=== PATIENT | male | born 1990 | race Two or more races ===

== ENCOUNTER 2017-06-21 05:01 | Emergency (ER) | payer MEDICAID ==
[~2017-06-21] VITALS: Ht 175.3 cm; Wt 64.4 kg
[2017-06-21 05:20] VITALS: BP 144/78
== END 2017-06-21 06:44 | disposition left against medical advice (07) ==
LOC: ER 05:07
DX: F11.20 Opioid dependence, uncomplicated (principal); L02.414 Cutaneous abscess of left upper limb; F12.10 Cannabis abuse, uncomplicated

== ENCOUNTER 2017-06-24 01:47 | Emergency (ER) | payer MEDICAID ==
[~2017-06-24] VITALS: Ht 175.3 cm; Wt 68.9 kg
[2017-06-24 02:06] VITALS: BP 119/74
[2017-06-24 03:27] LABS: Basophils # (auto) 0 uL; Basophils % (auto) 0.3 % (0.0-2.0); Eosinophils # (auto) 0.1 uL; Eosinophils % (auto) 0.8 % (0.0-7.0); Hematocrit 39.7 % (41.0-53.0); Hemoglobin 13.5 g/dL (13.5-17.5); Lymphocytes # (auto) 2.1 uL; Lymphocytes % (auto) 22.9 % (10.0-50.0); Mean Corpuscular Hemoglobin 28.8 pg (28.0-32.0); Mean Corpuscular Hgb Conc. 33.9 g/dL (32.0-36.0); Monocytes # (auto) 0.9 uL; Monocytes % (auto) 9.4 % (0.0-12.0); Neutrophils # (auto) 6.2 uL; Neutrophils % (auto) 66.6 % (37.0-80.0); Nucleated Red Blood Cells % 0.1 %; Platelet Count (auto) 308 10^3/uL (140-450); Red Blood Cells 4.67 10^6/uL (4.5-5.90); White Blood Cell 9.3 10^3/uL (4.4-10.8)
[2017-06-24 03:45] LABS: Albumin 3.5 g/dL (3.4-5.0); BUN/Creatinine Ratio 20.4; Calcium 8.8 mg/dL (8.5-10.1); Potassium 3.5 mmol/L (3.5-5.1)
[2017-06-24 03:48] LABS: Bilirubin, Total 0.5 mg/dL (0.2-1.0); Total Protein 7.3 g/dL (6.4-8.2)
== END 2017-06-24 05:41 | disposition left against medical advice (07) ==
LOC: ER 01:47
DX: T63.301A Toxic effect of unspecified spider venom, accidental (unintentional), initial encounter (principal); Z53.21 Procedure and treatment not carried out due to patient leaving prior to being seen by health care provider; Y92.89 Other specified places as the place of occurrence of the external cause
CPT/HCPCS: 36415; 80053; 85025

== ENCOUNTER 2017-06-25 12:40 | Emergency (ER) | payer MEDICAID ==
[~2017-06-25] VITALS: Ht 175.3 cm; Wt 64.4 kg
[2017-06-25 13:08] VITALS: BP 128/81
[2017-06-25] MEDS ORDERED: LIDOCAINE 1% (LOCAL ANESTH.) PF 5ml SDV IJ ONE (14:00)
[2017-06-25] MEDS ORDERED: cefTRIAXone SOD 1,000 MG VL IM ONE (14:15)
== END 2017-06-25 14:43 | disposition home or self-care (01) ==
LOC: ER 12:40
DX: L02.414 Cutaneous abscess of left upper limb (principal); Z88.2 Allergy status to sulfonamides
CPT/HCPCS: 10060; 96372; 99283; J0696

== ENCOUNTER 2017-11-20 04:25 | Observation (INO) | payer MEDICAID ==
[~2017-11-20] VITALS: Ht 177.8 cm; Wt 68.0 kg
[2017-11-20 06:09] LABS: Urine Bacteria FEW /hpf (None Seen); Urine Blood Negative /uL (Negative); Urine Mucus FEW (None Seen); Urine Specific Gravity 1.029 (1.001-1.035); Urine WBC 2 /hpf (0 - 3)
[2017-11-20 06:19] LABS: Basophils # (auto) 0 uL; Basophils % (auto) 0.2 % (0.0-2.0); Eosinophils # (auto) 0 uL; Eosinophils % (auto) 0.1 % (0.0-7.0); Hematocrit 43.4 % (41.0-53.0); Hemoglobin 15.3 g/dL (13.5-17.5); Lymphocytes # (auto) 1.9 uL; Lymphocytes % (auto) 15.8 % (10.0-50.0); Mean Corpuscular Hgb Conc. 35.3 g/dL (32.0-36.0); Monocytes % (auto) 8.2 % (0.0-12.0); Neutrophils # (auto) 9.2 uL; Neutrophils % (auto) 75.7 % (37.0-80.0); Platelet Count (auto) 297 10^3/uL (140-450); Red Blood Cells 5.11 10^6/uL (4.5-5.90); Red Cell Distribution Width 13.5 % (11.8-14.3); White Blood Cell 12.2 10^3/uL (4.4-10.8)
[2017-11-20 06:35] LABS: Alanine Aminotransferase 26 U/L (16-61); Albumin 4.5 g/dL (3.4-5.0); Anion Gap 12 (5-15); Aspartate Aminotransferase 25 U/L (15-37); BUN/Creatinine Ratio 16.9; Blood Alcohol < 3.0 mg/dL (0-5); Blood Urea Nitrogen 35 mg/dL (7-18); Calcium 8.6 mg/dL (8.5-10.1); Carbon Dioxide 23 mmol/L (21-32); Chloride 96 mmol/L (98-107); GFR African American 49 mL/min; GFR Non-African American 41 mL/min; Glucose 130 mg/dL (74-106); Potassium 3.6 mmol/L (3.5-5.1); Sodium 131 mmol/L (136-145)
[2017-11-20 06:37] LABS: Alcohol, Urine < 3.0 mg/dL (0-5); Amphetamine Screen, Urine POSITIVE (NEGATIVE); Barbiturate Scree,Urine NEGATIVE (NEGATIVE); Benzodiazephine Screen, Urine NEGATIVE (NEGATIVE); Cannabinoid Screen, Urine NEGATIVE (NEGATIVE); Cocaine Screen, Urine NEGATIVE (NEGATIVE); Opiate Scree,Urine POSITIVE (NEGATIVE); Phencyclidine Screen, Urine NEGATIVE (NEGATIVE)
[2017-11-20 06:42] LABS: Alkaline Phosphatase 76 U/L (45-117); Bilirubin, Total 1.2 mg/dL (0.2-1.0); Total Protein 8.5 g/dL (6.4-8.2)
[2017-11-20 15:51] VITALS: BP 114/61
== END 2017-11-20 16:00 | disposition home or self-care (01) | DRG 773 ==
LOC: ER 04:25 → OVERFLOW 04:26 → ER 15:59
PROVIDERS: ADMIT Emergency Medicine; ATTEND Emergency Medicine
DX: F11.20 Opioid dependence, uncomplicated (principal); N18.3 Chronic kidney disease, stage 3 (moderate); F15.10 Other stimulant abuse, uncomplicated
CPT/HCPCS: 36415; 80053; 80307; 80320; 81001; 85025; 99285; G0378; J7030

== ENCOUNTER 2018-04-01 04:29 | Emergency (ER) | payer MEDICAID ==
[~2018-04-01] VITALS: Ht 177.8 cm; Wt 77.1 kg
[2018-04-01] MEDS ORDERED: NALOXONE HCL 0.4 MG/ML VIAL IV ONE (05:15)
[2018-04-01 05:44] VITALS: BP 158/96
[2018-04-01 06:42] LABS: Salicylate < 1.7 mg/dL (2.8-20.0)
[2018-04-01 06:44] LABS: Alanine Aminotransferase 41 U/L (16-61); Albumin 4.4 g/dL (3.4-5.0); Anion Gap 10 (5-15); Aspartate Aminotransferase 44 U/L (15-37); BUN/Creatinine Ratio 21.6; Blood Alcohol < 3.0 mg/dL (0-5); Blood Urea Nitrogen 27 mg/dL (7-18); Calcium 8.1 mg/dL (8.5-10.1); Carbon Dioxide 24 mmol/L (21-32); Chloride 100 mmol/L (98-107); GFR African American > 60 mL/min; GFR Non-African American > 60 mL/min; Glucose 119 mg/dL (74-106); Magnesium 2.2 mg/dL (1.6-2.6); Potassium 3.2 mmol/L (3.5-5.1); Sodium 134 mmol/L (136-145)
[2018-04-01 06:45] LABS: Acetaminophen < 2.0 ug/mL (10-30); Basophils # (auto) 0 uL; Basophils % (auto) 0.3 % (0.0-2.0); Eosinophils # (auto) 0 uL; Hematocrit 41.1 % (41.0-53.0); Hemoglobin 14.4 g/dL (13.5-17.5); Lymphocytes % (auto) 7.4 % (10.0-50.0); Mean Corpuscular Hemoglobin 29.7 pg (28.0-32.0); Mean Corpuscular Volume 84.8 fL (80.0-100.0); Monocytes # (auto) 0.9 uL; Monocytes % (auto) 6.9 % (0.0-12.0); Neutrophils # (auto) 11.7 uL; Neutrophils % (auto) 85.4 % (37.0-80.0); Platelet Count (auto) 232 10^3/uL (140-450); Red Blood Cells 4.85 10^6/uL (4.5-5.90); Red Cell Distribution Width 13.3 % (11.8-14.3); White Blood Cell 13.7 10^3/uL (4.4-10.8)
[2018-04-01 06:47] LABS: Alkaline Phosphatase 93 U/L (45-117); Bilirubin, Total 1.4 mg/dL (0.2-1.0); Total Protein 8.1 g/dL (6.4-8.2)
== END 2018-04-01 06:06 | disposition left against medical advice (07) ==
LOC: EDBD 04:29 → ER 04:29
DX: T40.1X1A Poisoning by heroin, accidental (unintentional), initial encounter (principal); R07.81 Pleurodynia; F12.10 Cannabis abuse, uncomplicated; F15.10 Other stimulant abuse, uncomplicated; F11.10 Opioid abuse, uncomplicated; Z88.2 Allergy status to sulfonamides; Y92.9 Unspecified place or not applicable; Z59.0 Homelessness
CPT/HCPCS: 36415; 80053; 80320; 80329; 83735; 85025

== ENCOUNTER 2018-04-02 00:11 | Emergency (ER) | payer MEDICAID ==
[~2018-04-02] VITALS: Ht 177.8 cm; Wt 74.8 kg
[2018-04-02 03:15] VITALS: BP 117/75
== END 2018-04-02 03:16 | disposition home or self-care (01) ==
LOC: ER 00:11
DX: S22.42XA Multiple fractures of ribs, left side, initial encounter for closed fracture (principal); S20.212A Contusion of left front wall of thorax, initial encounter; F11.10 Opioid abuse, uncomplicated; F12.10 Cannabis abuse, uncomplicated; F15.10 Other stimulant abuse, uncomplicated; Z90.49 Acquired absence of other specified parts of digestive tract; Z59.0 Homelessness; Z88.2 Allergy status to sulfonamides; X58.XXXA Exposure to other specified factors, initial encounter; Y93.89 Activity, other specified; Y99.8 Other external cause status; Y92.89 Other specified places as the place of occurrence of the external cause
CPT/HCPCS: 71101

== ENCOUNTER 2019-01-03 13:26 | Inpatient (IN) | payer MEDICAID ==
[~2019-01-03] VITALS: Ht 172.7 cm; Wt 72.0 kg
[2019-01-03] MEDS ORDERED: SODIUM CHLORIDE 0.9% 1,000 ML IV ONE (13:42)
[2019-01-03] MEDS ORDERED: VANCOMYCIN 1GM/250ML 250 ML IV ONE (13:45)
[2019-01-03] MEDS ORDERED: metroNIDAZOLE 500MG/100ML 100 ML IV ONE (13:45)
[2019-01-03] MEDS ORDERED: NALOXONE HCL 0.4 MG/ML VIAL ONE (14:01)
[2019-01-03] MEDS ORDERED: ONDANSETRON HCL 4 MG/2 ML VIAL ONE (14:06)
[2019-01-03 14:12] LABS: Basophils # (auto) 0 uL; Basophils % (auto) 0.1 % (0.0-2.0); Eosinophils # (auto) 0 uL; Eosinophils % (auto) 0.6 % (0.0-7.0); Hemoglobin 13.8 g/dL (13.5-17.5); Lymphocytes # (auto) 0.3 uL; Lymphocytes % (auto) 10.4 % (10.0-50.0); Mean Corpuscular Hemoglobin 29.1 pg (28.0-32.0); Mean Corpuscular Hgb Conc. 33.7 g/dL (32.0-36.0); Mean Corpuscular Volume 86.4 fL (80.0-100.0); Monocytes # (auto) 0.1 uL; Monocytes % (auto) 2.1 % (0.0-12.0); Neutrophils # (auto) 2.4 uL; Neutrophils % (auto) 86.8 % (37.0-80.0); Nucleated Red Blood Cells % 0.1 %; Platelet Count (auto) 230 10^3/uL (140-450); Red Blood Cells 4.74 10^6/uL (4.5-5.90); Red Cell Distribution Width 13.3 % (11.8-14.3); White Blood Cell 2.7 10^3/uL (4.4-10.8)
[2019-01-03] MEDS ORDERED: ONDANSETRON HCL 4 MG/2 ML VIAL IV ONE (14:15)
[2019-01-03] MEDS ORDERED: NALOXONE HCL 0.4 MG/ML VIAL IV ONE (14:15)
[2019-01-03 14:22] LABS: INR 1.16 (0.9-1.15); Partial Thromboplastin Time 23.7 sec (23.64-32.05)
[2019-01-03 14:25] LABS: Albumin 3.6 g/dL (3.4-5.0); Anion Gap 9 (5-15); Blood Urea Nitrogen 20 mg/dL (7-18); Carbon Dioxide 26 mmol/L (21-32); Chloride 102 mmol/L (98-107); GFR African American 82 mL/min; GFR Non-African American 68 mL/min; Glucose 120 mg/dL (74-106); Magnesium 1.7 mg/dL (1.6-2.6); Sodium 137 mmol/L (136-145)
[2019-01-03 14:38] LABS: Lactic Acid w/Reflex 2.7 mmol/L (0.4-2.0)
[2019-01-03 14:41] LABS: Alanine Aminotransferase 22 U/L (16-61); Alkaline Phosphatase 96 U/L (45-117); Aspartate Aminotransferase 20 U/L (15-37); Total Protein 6.9 g/dL (6.4-8.2)
[2019-01-03 15:00] LABS: Potassium 2.8 mmol/L (3.5-5.1)
[2019-01-03] MEDS ORDERED: POTASSIUM EFFERVESENT TAB 25 MEQ PO ONE (16:15)
[2019-01-03] MEDS ORDERED: LORazepam 2MG/ML-1ML VIAL IV PRN (16:30)
[2019-01-03] MEDS ORDERED: VANCOMYCIN PER PHARMACY 0 MG IV SCH (16:30)
[2019-01-03] MEDS ORDERED: NITROGLYCERIN 0.4 MG SL TAB SL PRN (16:30)
[2019-01-03] MEDS ORDERED: ACETAMINOPHEN 500 MG TAB PO PRN (16:30)
[2019-01-03] MEDS ORDERED: ONDANSETRON HCL 4 MG/2 ML VIAL IV PRN (16:30)
[2019-01-03] MEDS ORDERED: MORPHINE SULF INJ 2 MG/ML SYRINGE 1ML IV PRN (16:30)
[2019-01-03] MEDS: NOREPINEPHRINE 8 MG/250ML KIT 250 ML IV SCH (17:53)
[2019-01-03] MEDS: SODIUM CHLORIDE 0.9% 1,000 ML IV SCH (17:54)
[2019-01-03] MEDS: PIPERACILLIN-TAZOB 3.375GM 100 ML IV SCH ×2 (18:23→18:28)
[2019-01-03 19:33] VITALS: BP 110/55
[2019-01-03 20:17] LABS: Urine Bacteria NONE SEEN /hpf (None Seen); Urine Blood Negative /uL (Negative); Urine Hyaline Cast FEW /lpf (0 - 2); Urine Mucus FEW (None Seen); Urine Specific Gravity 1.008 (1.001-1.035); Urine WBC 6 /hpf (0 - 3)
[2019-01-04] VITALS (61 sets, daily range): BP systolic 89–134; BP diastolic 46–83
[2019-01-04] MEDS: SODIUM CHLORIDE 0.9% 1,000 ML IV SCH (05:18)
--- NOTE | 2019-01-04 05:20 | NUR ---
Pt being admitted to ICU MONSE PASCUAL admitted to ICU via gurney on torpedoman's mate, and portable 02. Patient transfered to bed, connected to ICU monitoring and oxygen, and weighed by bedscale. Patient oriented to Vonnie Abad, primary RN, unit, room, bed, and unit policies regarding patient care and visiting hours. All questions and concerns addressed, patient verbalized understanding. NOTE: PT ABLE TO WALK TO BED WITH STEADY GAIT. ALERT AND ORIENTED. SR ON ENTERPRISE RESOURCE ANALYST WITH LEVOPHED GTT INFUSING AT 7 MCG/MIN. NS AT 125 ML/HR. 20 G IV TO R. AC B&P, 18 G IV TO L. AC WITH LEVOPHED GTT RUNNING B&P. PT DENIES PAIN. BED IN LOWEST LOCKED POSITION. SIDE RAILS UP X 2. CALL SANDHU IN REACH.
[2019-01-04] MEDS: PIPERACILLIN-TAZOB 3.375GM 100 ML IV SCH ×3 (06:00→18:05)
[2019-01-04 06:55] LABS: Hematocrit 39.8 % (41.0-53.0); Hemoglobin 13.4 g/dL (13.5-17.5); Mean Corpuscular Hgb Conc. 33.7 g/dL (32.0-36.0); Mean Corpuscular Volume 86.2 fL (80.0-100.0); Platelet Count (auto) 199 10^3/uL (140-450); Red Blood Cells 4.62 10^6/uL (4.5-5.90); Red Cell Distribution Width 13.3 % (11.8-14.3); White Blood Cell 29.2 10^3/uL (4.4-10.8)
--- NOTE | 2019-01-04 07:00 | NUR ---
SHIFT OPENING RECEIVED REPORT FROM TELEVISION MAINTENANCE WORKER RN. ASSUMED CARE OF PT. RESPIRATIONS EVEN AND UNLABORED, VITAL SIGNS STABLE WITH NO SIGNS/SYMPTOMS OF DISTRESS NOTED AT THIS TIME. BED LOCKED IN LOWEST POSITION. CALL LIGHT WITHIN REACH. WILL CONTINUE TO MONITOR.
[2019-01-04 07:05] LABS: Basophils % (manual) 0 (0.0-2.0); Blast Cells 0; Eosinophils % (manual) 0 (0-7); Myelocytes % 0; Promyelocytes % 0; Reactive Lymphocytes 0
[2019-01-04 07:13] LABS: Albumin 2.7 g/dL (3.4-5.0); BUN/Creatinine Ratio 12.4; Calcium 7.7 mg/dL (8.5-10.1); Potassium 3.7 mmol/L (3.5-5.1)
[2019-01-04 07:16] LABS: Bilirubin, Total 0.6 mg/dL (0.2-1.0); Total Protein 5.8 g/dL (6.4-8.2)
[2019-01-04 07:39] LABS: Band Neutrophils % (manual) 21; Lymphocytes % (manual) 1 (10.0-50.0); Metamyelocytes % 2; Monocytes % (manual) 4 (0-12)
[2019-01-04] MEDS: FAMOTIDINE 20 MG TAB PO SCH (10:27)
--- NOTE | 2019-01-04 11:07 | NUR ---
MUSICAL INSTRUMENT MECHANIC AT BEDSIDE.
[2019-01-04] MEDS ORDERED: VANCOMYCIN 1GM/250ML 250 ML IV ONE (11:15)
--- NOTE | 2019-01-04 11:50 | NUR ---
AT BEDSIDE DR. DOWNEY AT BEDSIDE TO ASSESS PT AND UPDATE ON PLAN OF CARE. ALL ORDERS NOTED IN CHART. Addendum: 01/04/19 at 1809 by Kaley Hess RN PER MD TRANSFER TO TELEMETRY FLOOR WHEN OFF LEVOPHED FOR AT LEAST FOUR HOURS AND B/P STABLE.
[2019-01-04] MEDS ORDERED: ALBUMIN 25% 100 ML IV ONE (12:00)
[2019-01-04] MEDS: SOD CHL 0.45% 1,000 ML IV SCH ×2 (12:10→20:00)
[2019-01-04 12:47] LABS: Hepatitis B Surface Antibody Positive
[2019-01-04 13:46] LABS: Hepatitis B Surface Antigen Negative (Negative)
[2019-01-04 16:07] LABS: Hepatitis C Antibody Negative (Negative)
[2019-01-04] MEDS: NOREPINEPHRINE 8 MG/250ML KIT 250 ML IV SCH (16:40)
[2019-01-04 18:10] LABS: Alcohol, Urine < 3.0 mg/dL (0-5); Amphetamine Screen, Urine POSITIVE (NEGATIVE); Barbiturate Scree,Urine NEGATIVE (NEGATIVE); Benzodiazephine Screen, Urine NEGATIVE (NEGATIVE); Cannabinoid Screen, Urine NEGATIVE (NEGATIVE); Cocaine Screen, Urine NEGATIVE (NEGATIVE); Opiate Scree,Urine NEGATIVE (NEGATIVE); Phencyclidine Screen, Urine NEGATIVE (NEGATIVE)
--- NOTE | 2019-01-04 19:30 | NUR ---
OPENING ASSUMED CARE OF PATIENT ALERT AND ORIENT X4, ABLE TO WALK. SR ON SHEET METAL CONTRACTOR. RESPIRATIONS EVEN AND UNLABORED, O2 SAT 98% ON ROOM AIR. SO RESPIRATORY DISTRESS AT THIS TIME. PATIENT URINATING IN URINAL WITHOUT ASSISTANCE. ABD FLAT, SOFT, AND NON TENDER. 20G RAC PATENT AND SL. 18G LAC RUNNING .45 NS AT 125ML/HR. SKIN INTACT, TURNING SELF FOR COMFORT. EDUCATED COUNTRY SINGER LIGHT. CALL LIGHT WITHIN REACH. EDUCATED TO CALL FOR ASSISTANCE USING CALL LIGHT BEFORE GETTING OUT OF BED. PATIENT VERBALIZED UNDERSTANDING. NO PAIN AT THIS TIME. BED IN LOWEST LOCKED POSITION. BEDSIDE TABLE WITHIN REACH. BED IN FULL VIEW OF NURSES STATION. WILL CONTINUE TO MONITOR.
--- NOTE | 2019-01-04 23:55 | NUR ---
TRANSFERRED TO 273B VIA WHEELCHAIR, ON TELEMONITOR, VSS. TRANSFERRED BY CHARGE NURSE AND ACCOMPANIED BY NURSES DIRECTOR. REPORT GIVEN TO AUSTYN MACIAS.
--- NOTE | 2019-01-04 23:56 | NUR ---
Telemetry downgrade from ICU MONSE PASCUAL admitted to Telemetry unit after SBAR received. Patient oriented to Zeeshan Mcbride primary RN, unit, room 273, bed A, and unit policies regarding patient care and visiting hours. Patient now on continuous telemetry monitoring, tele box #[id number] and telemetry reading on arrival to unit is SR 76. Patient VS taken, weighed by bedscale and encouraged to call if they need something. All questions and concerns addressed, patient verbalized understanding.
[2019-01-05] MEDS: SOD CHL 0.45% 1,000 ML IV SCH (04:00)
[2019-01-05 05:00] VITALS: BP 125/60
[2019-01-05] MEDS: PIPERACILLIN-TAZOB 3.375GM 100 ML IV SCH ×2 (05:28)
[2019-01-05 06:18] LABS: Basophils # (auto) 0.1 uL; Basophils % (auto) 0.3 % (0.0-2.0); Eosinophils # (auto) 0.1 uL; Eosinophils % (auto) 0.4 % (0.0-7.0); Hematocrit 38.6 % (41.0-53.0); Hemoglobin 13.1 g/dL (13.5-17.5); Lymphocytes # (auto) 1.7 uL; Lymphocytes % (auto) 9.1 % (10.0-50.0); Mean Corpuscular Hemoglobin 29.1 pg (28.0-32.0); Mean Corpuscular Hgb Conc. 33.9 g/dL (32.0-36.0); Mean Corpuscular Volume 85.7 fL (80.0-100.0); Monocytes # (auto) 1.2 uL; Monocytes % (auto) 6.2 % (0.0-12.0); Nucleated Red Blood Cells % 0.3 %; Platelet Count (auto) 146 10^3/uL (140-450); Red Cell Distribution Width 13.4 % (11.8-14.3); White Blood Cell 19.1 10^3/uL (4.4-10.8)
[2019-01-05 06:35] LABS: Albumin 2.8 g/dL (3.4-5.0); BUN/Creatinine Ratio 12.9; Potassium 3.6 mmol/L (3.5-5.1)
[2019-01-05 06:38] LABS: Bilirubin, Total 0.4 mg/dL (0.2-1.0); Total Protein 5.8 g/dL (6.4-8.2)
[2019-01-05 08:00] VITALS: BP 126/88
--- NOTE | 2019-01-05 08:00 | NUR ---
OPENING SHIFT NOTE ASSUMED CARE OF PATIENT AWAKE AND ALERTX4. NO SIGNS AND SYMPTOMS OF DISTRESS/SOB. PATIENT HAS NO COMPLAINTS OF PAIN AT THIS TIME. BED AT LOWEST LOCKED POSITION, SIDERAILS UP X2 AND CALL LIGHT WITHIN REACH. INSTRUCTED PATIENT ON POC AND TO CALL FOR ASSISTANCE PRN. WILL CONTINUE TO MONITOR Q1HR AND PRN.
[2019-01-05] MEDS: FAMOTIDINE 20 MG TAB PO SCH (08:34)
[2019-01-05 09:00] VITALS: BP 126/88
[2019-01-05] MEDS ORDERED: HYDROcodone-ACET 5/325MG TAB PO PRN (10:45)
[2019-01-05] MEDS ORDERED: LORazepam 0.5 MG TAB PO PRN (10:45)
[2019-01-05] MEDS ORDERED: LEVOFLOXACIN 500MG 100 ML IV ONE (10:45)
[2019-01-05 13:00] VITALS: BP 111/62
--- NOTE | 2019-01-05 13:00 | NUR ---
Patient ambulated to the bathroom with steady gait.
--- NOTE | 2019-01-05 13:27 | NUR ---
Order to DC tele received. Tele-monitor collected, cleaned and sent to ICU via [employer] system.
[2019-01-05 17:00] VITALS: BP 123/75
--- NOTE | 2019-01-05 17:08 | NUR ---
SS consult for substance abuse. Patient encounter, provided patient with substance abuse resources. Mother at bedside. Patient advised the resources provided were enough and that he would look into them.
--- NOTE | 2019-01-05 18:50 | NUR ---
Closing Note Patient is sitting up in bed, no c/o pain, no s/s of distress/sob noted. Bed at lowest locked position, bed side rails up x2 and call light within reach. Will endorse care to NOC RN.
--- NOTE | 2019-01-05 19:20 | NUR ---
assumed care, pt. awake, relative at bedside, no c/o pain, no sob.
[2019-01-05 22:00] VITALS: BP 117/71
[2019-01-06 05:53] LABS: Basophils # (auto) 0 uL; Basophils % (auto) 0.3 % (0.0-2.0); Eosinophils # (auto) 0.1 uL; Eosinophils % (auto) 0.6 % (0.0-7.0); Hematocrit 40.9 % (41.0-53.0); Hemoglobin 13.9 g/dL (13.5-17.5); Lymphocytes # (auto) 1.8 uL; Lymphocytes % (auto) 15.5 % (10.0-50.0); Mean Corpuscular Volume 85.5 fL (80.0-100.0); Monocytes # (auto) 0.7 uL; Monocytes % (auto) 6.4 % (0.0-12.0); Neutrophils # (auto) 8.8 uL; Neutrophils % (auto) 77.2 % (37.0-80.0); Platelet Count (auto) 159 10^3/uL (140-450); Red Blood Cells 4.79 10^6/uL (4.5-5.90); Red Cell Distribution Width 13.6 % (11.8-14.3); White Blood Cell 11.3 10^3/uL (4.4-10.8)
[2019-01-06 06:29] LABS: Albumin 2.9 g/dL (3.4-5.0); BUN/Creatinine Ratio 15.5; Bilirubin, Total 0.3 mg/dL (0.2-1.0); Calcium 8.3 mg/dL (8.5-10.1); Potassium 3.8 mmol/L (3.5-5.1); Total Protein 6.3 g/dL (6.4-8.2)
[2019-01-06 09:00] VITALS: BP 130/74
[2019-01-06] MEDS: FAMOTIDINE 20 MG TAB PO SCH (09:34)
[2019-01-06] MEDS ORDERED: LEVO-28 PO (09:48)
[2019-01-06] MEDS ORDERED: LEVOFLOXACIN 500MG 100 ML IV SCH ×2 (10:00)
[2019-01-06 10:49] VITALS: BP 130/74
--- NOTE | 2019-01-06 11:38 | NUR ---
Discharge instructions given as ordered. Encourage to follow up with PMD and detox clinic as instructed. All questions and concerns addressed. Patient verbalized understanding. Medication reconciliation form completed and copy given to patient. No home medications held in Pharmacy, and no needed vaccines to be given. IV removed with catheter intact, pressure dressing applied, bullock catheter removed.
--- NOTE | 2019-01-06 12:00 | NUR ---
Patient walked out of the hospital with all personal belongings, family waiting for pt out of the hospital. No distress noted at time of departure.
== END 2019-01-06 12:00 | disposition home or self-care (01) | DRG 721 ==
LOC: ER 13:29 → TELE 13:30 → ICU WEST 01-04 05:20 → TELE-WESTW 01-04 23:57 → WEST WING 01-05 10:07
PROVIDERS: ADMIT Nurse Practitioner Acute Care; ATTEND Internal Medicine
DX: T80.22XA Acute infection following transfusion, infusion, or injection of blood and blood products, initial encounter (principal); N17.0 Acute kidney failure with tubular necrosis; R65.21 Severe sepsis with septic shock; A41.9 Sepsis, unspecified organism; F11.20 Opioid dependence, uncomplicated; R56.9 Unspecified convulsions; E87.6 Hypokalemia; F17.210 Nicotine dependence, cigarettes, uncomplicated; Y84.8 Other medical procedures as the cause of abnormal reaction of the patient, or of later complication, without mention of misadventure at the time of the procedure; Z59.0 Homelessness; Z88.2 Allergy status to sulfonamides; Z90.49 Acquired absence of other specified parts of digestive tract; Y92.89 Other specified places as the place of occurrence of the external cause
CPT/HCPCS: 36415; 71045; 80053; 80202; 80307; 81001; 82962; 83605; 83735; 84443; 84484; 85007; 85025; 85027; 85610; 85730; 86706; 86803; 87040; 87081; 87340; 93005; 93306; 94761; 99291; G0378; J1956; J2405; J2543; J3490; P9047

== ENCOUNTER 2019-03-10 13:39 | Emergency (ER) | payer MEDICAID ==
[~2019-03-10] VITALS: Ht 175.3 cm; Wt 68.0 kg
[~2019-03-10 13:39] MED LIST: LEVO-28 PO
[2019-03-10 15:04] VITALS: BP 150/85
== END 2019-03-10 16:19 | disposition home or self-care (01) ==
LOC: ER 13:43
DX: M77.9 Enthesopathy, unspecified (principal); F17.210 Nicotine dependence, cigarettes, uncomplicated; Z59.0 Homelessness
CPT/HCPCS: 73110

== ENCOUNTER 2020-07-27 14:34 | Emergency (ER) | payer MEDICAID ==
[~2020-07-27] VITALS: Ht 175.3 cm; Wt 70.3 kg
[2020-07-27 14:55] VITALS: BP 134/85
== END 2020-07-27 21:45 | disposition left against medical advice (07) ==
LOC: ER 14:34
DX: S61.219A Laceration without foreign body of unspecified finger without damage to nail, initial encounter (principal); Z53.21 Procedure and treatment not carried out due to patient leaving prior to being seen by health care provider; X58.XXXA Exposure to other specified factors, initial encounter; Y93.89 Activity, other specified; Y92.89 Other specified places as the place of occurrence of the external cause; Y99.8 Other external cause status

== ENCOUNTER 2022-08-05 19:53 | Emergency (ER) | payer SELFPAY ==
[~2022-08-05] VITALS: Ht 175.3 cm; Wt 69.3 kg
[~2022-08-05 19:53] MED LIST changes: -LEVO-28 PO; +LEVO500T91 PO
[2022-08-05 22:38] VITALS: BP 122/80
== END 2022-08-05 22:40 | disposition home or self-care (01) ==
LOC: ER 20:01
DX: S62.511A Displaced fracture of proximal phalanx of right thumb, initial encounter for closed fracture (principal); F17.210 Nicotine dependence, cigarettes, uncomplicated; F15.10 Other stimulant abuse, uncomplicated; F11.10 Opioid abuse, uncomplicated; Z88.2 Allergy status to sulfonamides; Z90.89 Acquired absence of other organs; Z59.00 Homelessness unspecified; Y04.8XXA Assault by other bodily force, initial encounter; Y93.89 Activity, other specified; Y92.89 Other specified places as the place of occurrence of the external cause; Y99.8 Other external cause status
CPT/HCPCS: 29125; 73130